=== PATIENT | female | born 1955 | race Caucasian/White ===

== ENCOUNTER 2019-01-11 00:29 | Outpatient (CLI) | payer BC, SELFPAY ==
--- NOTE | 2019-01-11 08:00 | DI.MAMMO_ITS ---
SYMPTOMS/DIAGNOSIS: SCREENING, Z12.31 MAMMOGRAM: Mammograms were interpreted according to the usual protocol including computer analysis with CAD system, tomosynthesis and C view imaging. The breast tissue is composed of scattered fibroglandular densities. There is no evidence of a dominant mass. There are no suspicious calcifications, and there has been no significant interval change when compared with prior images. SUMMARY: No evidence of malignancy, Category I, annual screening mammography is recommended. Breast density Category B. SA ASSESSMENT OF FINDINGS: Negative. Category 1. Patient will receive a letter notifying them of these results. BI-RADS category B. There are scattered areas of fibroglandular density.
== END 2019-01-11 00:49 ==
PROVIDERS: PCP Family Medicine; Visit Provider Family Medicine
DX: Z12.31 Encounter for screening mammogram for malignant neoplasm of breast (principal)
CPT/HCPCS: 77063; 77067

== ENCOUNTER 2020-12-24 09:27 | Outpatient (REF) | payer MEDICAID, SELFPAY ==
--- NOTE | 2020-12-24 08:30 | PAPFT_PTH ---
PATIENT: Vidhi Joya LOC: [facility] U#:[id number] AGE/SX: 65/F ROOM: RE12/24/[address]: Tia Carolina MD, DC : 1955 BED: DIS: 12/24/2020 SPEC #: [id number] RECD: 12/24/20 12:47 STATUS: SIMRAN RELuis Felipe #: [id number] CORINNE: 12/24/20 08:[address]: Tia Carolina DEPT: [facility] Cytology RECD BY: Kori Lopez Tissues: 1 - CX/ENDOCX FOR PAP SMEARS Procedures: PAP THIN PREP/UVM Screening HPV DNA PROBE Comments: [id number]
== END 2020-12-24 09:28 | disposition home or self-care (01) ==
LOC: LBN 09:27
PROVIDERS: PCP Family Medicine; Visit Provider Family Medicine
DX: Z12.4 Encounter for screening for malignant neoplasm of cervix (principal); Z87.42 Personal history of other diseases of the female genital tract; Z11.51 Encounter for screening for human papillomavirus (HPV)
CPT/HCPCS: 88142; 87624

== ENCOUNTER → 2021-11-17 02:01 | Outpatient (CLI) | payer OTHER, MEDICAID, SELFPAY ==
--- NOTE | 2021-11-17 11:04 | DI.MAMMO_ITS ---
Exam(s) MAMMO SCREENING EXAM: MAMMO SCREENING CLINICAL HISTORY: screening, Z12.39 TECHNIQUE: Mammograms were interpreted according to the usual protocol including computer analysis w [employer] CAD system, tomosynthesis and C-view imaging. COMPARISON: 2012 through 2018 FINDINGS: The breasts are composed of scattered fibroglandular densities, Breast Density category B. No suspicious masses or suspicious microcalcifications are seen. No skin thickening or abnormal axillary lymph nodes are seen. There has been no significant change from prior exams. IMPRESSION: BI-RADS Category 1, Negative mammogram Yearly screening mammography is recommended. Breast Density - Category B, scattered fibroglandular densities. A negative radiographic report should not delay biopsy if a dominant or clinically suspicious mass is present. Up to ten percent of cancers are not identified on mammography. A negative report may reinforce clinical impression. Adenosis and dense breasts may obscure an underlying neoplasm. False positive reports average 6 to 10%. Patient will receive a letter notifying them of these results.
== END ==
PROVIDERS: PCP Family Medicine; Visit Provider Family Medicine
DX: Z12.31 Encounter for screening mammogram for malignant neoplasm of breast (principal)
CPT/HCPCS: 77063; 77067

== ENCOUNTER 2022-03-18 18:07 | Outpatient (CLI) | payer OTHER, MEDICAID, SELFPAY ==
--- NOTE | 2022-03-18 18:00 | RT.EKG_ITS ---
APPROVED REPORT Exam: Resting ECG Reason for Exam: chest discomfort Patient Location: O HR:67 bpm ECG Measurements Heart Rate 67 AXIS WY 170 P 57 QRSd 89 QRS 68 QT 419 T 51 QTc 443 Conclusion Sinus rhythm...normal P axis, V-rate 50- 99 Normal Electrocardiogram
--- NOTE | 2022-03-18 19:18 | DI.VRAD_ITS ---
PROCEDURE INFORMATION: Exam: XR Chest Exam date and time: 03/18/2022 6:58 PM Age: 66 years old Clinical indication: R/O pneumo TECHNIQUE: Imaging protocol: Radiologic exam of the chest. Views: 2 views. COMPARISON: No relevant prior studies available. FINDINGS: Lungs: Unremarkable. No consolidation. Pleural spaces: Unremarkable. No pleural effusion. No pneumothorax. Heart/Mediastinum: Unremarkable. No cardiomegaly. Bones/joints: Unremarkable. IMPRESSION: No acute findings. Dictated and Authenticated by: Emilia Canela MD. Ordering:NATALEE Still MD
== END 2022-03-18 18:08 | disposition home or self-care (01) ==
LOC: DI.CM 18:08
PROVIDERS: PCP Family Medicine; Visit Provider Nurse Practitioner Family
DX: R07.89 Other chest pain (principal)
CPT/HCPCS: 93010; 71046

== ENCOUNTER → 2022-03-18 18:43 | Outpatient (CLI) | payer OTHER, MEDICAID, SELFPAY ==
--- NOTE | 2022-03-18 18:45 | DI.RAD_ITS ---
Exam(s) XR CHEST 2V PA LATERAL EXAM: XR CHEST 2V PA LATERAL CLINICAL HISTORY: r/o pnuemonia. TECHNIQUE: 2D digital imaging was performed. COMPARISON: CR CHEST 2 VIEWS PA,LAT from 01/27/2010 FINDINGS: 2 views: Heart size is normal. The mediastinum is not widened. Lungs are clear. No infiltrates nor pleural effusions. IMPRESSION: No acute pulmonary findings. DATA REPOSITORY: RADIATION DOSE DELIVERED:
== END ==
PROVIDERS: PCP Family Medicine; Visit Provider Nurse Practitioner Family
DX: R06.02 Shortness of breath (principal)
CPT/HCPCS: 71046

== ENCOUNTER → 2023-07-06 01:06 | Outpatient (CLI) | payer OTHER, SELFPAY ==
--- NOTE | 2023-07-06 07:30 | DI.RAD_ITS ---
Exam(s) XR KNEE RT 3V AP,LAT,MARQUITA EXAM: XR KNEE RT 3V AP,LAT,MARQUITA CLINICAL HISTORY: r knee pain,m25.561. TECHNIQUE: 2D digital imaging was performed. COMPARISON: No exams were available for comparison FINDINGS: 3 views No evidence of fracture or joint effusion. Bone density normal. No osseous lesions. No osteochondr al defects. No degenerative narrowing. No osteophytes. IMPRESSION: No significant radiographic findings on these three views of the right knee. DATA REPOSITORY: RADIATION DOSE DELIVERED:
== END ==
PROVIDERS: PCP Family Medicine; Visit Provider Family Medicine
DX: M25.561 Pain in right knee (principal)
CPT/HCPCS: 73562

== ENCOUNTER → 2024-02-29 13:41 | Outpatient (BNVA) | payer OTHER, SELFPAY | PROVIDERS: PCP Family Medicine; Referring Provider Family Medicine; Visit Provider Surgery | DX: Z12.11 Encounter for screening for malignant neoplasm of colon (principal); R19.5 Other fecal abnormalities ==

== ENCOUNTER 2024-03-17 07:43 | Day surgery (SDC) | payer OTHER, SELFPAY ==
--- NOTE | 2024-03-16 13:39 | W.PM.DSUDISC ---
Date of service: 03/17/24 Time of Service: 10:00 Discharge Plan Disposition Patient Disposition: Home Condition: Good Discharge Details Reason For Visit: screening colonoscopy Attending Provider: Willis Wong Primary Care Provider: Tia Carolina Home Meds and New Rx's Prescriptions: Continued estradiol [Estrace] 0.01 % (0.1 mg/gram) cream 1.5 g VG 2/wkly Qty: 42.5 11RF multivitamin 1 EACH capsule 1 ea PO DAILY Discontinued polyethylene glycol 3350 17 gram/dose powder 238 g PO ONCE Qty: 238 0RF Rx Instructions: take per colonoscopy instructions bisacodyl [Dulcolax (bisacodyl)] 5 mg tablet,delayed release (DR/EC) 5 mg PO ONCE Qty: 4 0RF Rx Instructions: take per colonoscopy instructions Discharge Instructions Additional Instructions: Vidhi, we were able to complete your colonoscopy today without any difficulty. Your prep was excellent negative everything fine. You have a little bit of diverticulosis. It scattered along the length of your colon, with no particular worrisome spots. Most noticeably, there is some inflammation in your rectum. From reading Dr. Dunbar's colonoscopy report in the past, it sounds like what I see today coincides with what was observed back then. I did some biopsies today similar to your previous experience. My guess is that this might represent some type of subclinical ulcerative colitis, although there are some other types of proctitis that are pretty poorly defined. In the big picture of things, I do not think it has anything to worry about. Once I have the results of the biopsy, the office will be in touch with any other recommendations. Please do not hesitate to call if you have any questions in the meantime. 1. If tolerated, consume a soft, low fiber diet for 1-2 days. 2[address] Do not drive, drink alcohol, operate machinery, make critical decisions, or do activities that require coordination or balance for 24 hours. 3. Because air was put into your colon during the procedure, expelling air from your rectum (passing gas or farting) is normal. 4. You may not have a bowel movement for 1-3 days because of the colonoscopy prep. This is normal. 5. Go directly to the emergency room if you notice any of the following: Develop chills (warm to touch), or if you have a thermometer and your temperature is above 101 Difficulty breathing or difficultly swallowing Persistent vomiting Severe abdominal pain, other than gas cramps Severe chest pain Black, tarry stools Any bleeding ? exceeding one tablespoon 6. Call your physician if the site where your intravenous was started becomes red, swollen, painful, and warm to touch. 7. Your physician has reviewed your pre-procedure medications. Please continue to take those medications as previously ordered. You will be given specific information/education regarding any changes to your medications before leaving. Stand Alone Forms: Anesthesia Discharge InstFernandez Bynum (DSU) Activity:: Activity as Tolerated Diet:: As Tolerated Discharge Orders Discharge Orders: Discharge Order (Routine); Ordered 03/16/24 Ordered By: Willis Wong DS: Diagnosis Discharge Diagnosis (1) Encounter for screening colonoscopy: Asessment and Plan: Follow-up on biopsy results
--- NOTE | 2024-03-16 13:41 | W.COLOREPORT ---
Date of service: 03/17/24 Time of Service: 10:02 Colonoscopy Report Date of procedure: 03/17/24 Pre-op diagnosis general: screening colonoscopy Post-op diagnosis procedure note: other (Diverticulosis, proctitis) Procedure: colonoscopy with rectal biopsies Surgeon: Willis Wong Anesthesia Type: General:No Airway Estimated blood loss (mL): 5 Pathology: other (Rectal biopsies at 20 cm and 15 cm) Complications: None Disposition: same day Indications: Vidhi is a 68 year old woman who had a positive cologuard test. She needs a follow up screening colonoscopy Prep: Miralax/Dulcolax Procedure Start Time: :32 Procedure End Time: 09:56 Retraction Time: 14 Findings: Proctitis extending from about 5 cm beyond the anal verge to about 20 cm beyond the anal verge, small area of ulceration around 15 cm in. Occasional scattered diverticulosis Procedure Description: After the induction of anesthesia, and with the patient in left lateral decubitus position, I began by performing an external anorectal exam.? Perineum and skin were normal, as was the anal verge.? There was no evidence of external hemorrhoids.? Next, I performed a digital rectal exam.? I did not appreciate any abnormal findings.? Next, I advanced a colonoscope into the rectal vault.? I performed retroflexion.? Top portion of the anal canal appeared normal.? Using insufflation, I then advanced the colonoscope beyond the rectal folds and into the sigmoid colon before advancing towards the cecum.? The quality of the prep was excellent.? The scope was noted to be in the cecum by identification of the ileocecal valve and appendiceal orifice.? I then began withdrawing the colonoscope using repeated irrigation as necessary for full evaluation of the colonic mucosa. ?Once the scope was withdrawn to the level of the rectum, great care was taken to examine portions of the rectal folds. Beginning around 20 cm from the anal verge with some prominence of lymphoid tissue. Narrowband imaging was used to help with analysis. Grossly, it appears consistent with benign lymphoid aggregate. I did perform some random biopsies around 20 cm. At 15 cm, there is a small area of shallow-based ulceration. There is no stigmata of recent bleeding. Cold biopsies were performed of this as well. Finally, the scope was withdrawn and the patient was brought to the same-day surgery recovery unit as the anesthetic wore off. ?The findings and instructions were shared with the patient prior to discharge. [place] Bowel Prep [place] Bowel Prep Right Colon: 3 Left Colon: 3 Transverse Colon: 3 Total Score: 9
[2024-03-17 08:25] VITALS: BP 147/70; PULSE 57; RESP 18; TEMP 36.2; O2SAT 100
[2024-03-17] MEDS: Lactated Ringers 1,000 ML 80 ML IV (08:32)
--- NOTE | 2024-03-17 09:05 | W.ANESPRE ---
General Info Date of Service Date Performed: 03/17/24 Height: 5 ft 4.75 in Weight: 68.4 kg Body Mass Index (BMI): 25.2 Surgical Procedure: Operation Date: 03/17/24 09:20 Proposed Procedure Side Surgeon kelechi Wong MD Meds Allergies and Home Medications Allergies Allergy/AdvReac Type Severity Reaction Status Date / Time Sulfa (Sulfonamide Allergy Severe Anaphylaxsi Verified 03/17/24 08:35 Antibiotics) s tetanus and diphtheria Allergy Severe SWELLING,FE Verified 03/17/24 08:35 toxoids MANDY procaine HCl (From Novocain) Allergy Intermediate blisters, Verified 03/17/24 08:35 rash nitrous oxide AdvReac Intermediate HAS Verified 03/17/24 08:35 OPPOSITE EFFECT TO MEDICINE ibuprofen lysine (From AdvReac Mild baez Verified 03/17/24 08:35 NeoProfen (ibuprofen stomach lysn)(PF)) lining lobster Allergy Severe HIVES Uncoded 03/17/24 08:35 Home Medication ?Medication ?Instructions ?Recorded multivitamin 1 ea PO DAILY 09/16/12 estradiol 0.01% (0.1 mg/gram) 1.5 g vaginal 2/wkly #42.5 grams 02/25/24 vaginal cream (Estrace) Current Visit Medications: Current Medications Generic Name Dose Route Start Last Admin Trade Name Freq PRN Reason Stop Dose Admin Ringer's Solution 1,000 mls @ 80 mls/hr 03/17/24 06:00 03/17/24 08:32 IV 03/17/24 23:59 80 mls/hr INFUSION SAMUEL Administration IV Miscellaneous Supplies 1 each 03/17/24 06:00 Iv Access IV 03/17/24 23:59 DIRECTED SAMUEL Ondansetron HCl 4 mg 03/16/24 13:42 Ondansetron 4 Mg/2 Ml Vial IVP 04/15/24 13:41 Q4H PRN PRN Nausea / Vomiting Sodium Chloride 0 ml 03/17/24 06:00 Normal Saline Flush 10 Ml Syr IV 03/17/24 23:59 PRN PRN Sodium Chloride 0 ml 03/17/24 06:00 Normal Saline 10 Ml Vial IJ 03/17/24 23:59 DIRECTED PRN Sterile Water 0 ml 03/17/24 06:00 Water,Injection,Sterile 10 Ml Vial IJ 03/17/24 23:59 DIRECTED PRN PFS Active Problems Active Problems: Problem Status Onset Code Positive colorectal cancer screening using Cologuard test Acute R19.5 Tick bite Acute W57.XXXA Right knee pain Acute M25.561 Poison oak Acute L23.7 COVID-19 Acute U07.1 Grief Acute F43.21 Actinic keratoses Chronic 01/19/14 L57.0 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 Annual physical exam Acute 10/05/16 Z00.00 Atrophic vaginitis Chronic 09/26/13 N95.2 Borderline systolic hypertension Chronic 09/10/15 R03.0 Other idiopathic scoliosis, 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/10/15 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 lattice degeneration Chronic 09/26/13 H35.419 Status post tonsillectomy Resolved Z90.89 Urethral caruncle Resolved N36.2 Medical History Medical History Encounter for screening colonoscopy Family history of malignant neoplasm of breast (08/24/14) Medical History Comments:: 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 Surgical History Surgical History (Updated 03/17/24 @ 09:04 by Maura Hughes) History of colonoscopy (~02/2024) History of appendectomy History of bladder surgery polyps due to methylene chlorine urethral caruncle removed (11/28/09) Tonsillectomy (~1963) Bladder Surgery (~1986) polyps removed Appendectomy (~1974) Tobacco Smoking/Tobacco Use Status: Never Passive smoking exposure: Yes (childhood) Second hand exposure: Yes Alcohol Alcohol Intake: current Alcohol intake frequency: a few times a week Alcohol type: wine Substance Use Substance use: Never Substance use type: does not use Vital Signs and Lab Results Vital Signs Most Recent Vital Signs in EMR: Most Recent Vital Signs Temp Pulse Resp BP Pulse Ox 36.2 C L 57 L 18 147/70 H 100 03/17/24 08:25 03/17/24 08:25 03/17/24 08:25 03/17/24 08:25 03/17/24 08:25 Lab Results Blood Type / Crossmatch: No Data to Display Complete Blood Count: No Data to Display Complete Metabolic Panel: No Data to Display Liver Function Panel: No Data to Display Coagulation Panel: No Data to Display Cardiac Panel: No Data to Display Arterial Blood Gas: No Data to Display Venous Blood Gas: No Data to Display Pancreas Panel: No Data to Display Thyroid Panel: No Data to Display Infectious Disease: No Data to Display Blood Cultures: No Data to Display Toxicology Panel: No Data to Display Anesthesia Assessment and Plan Anesthesia History Personal History: Other Family History: No Family History of Anesthesia Complications Exercise Tolerance Exercise Tolerance: Metabolic Equivalents>4 Pertinent Negatives Pertinent Negatives: No Symptoms of GERD Cardiac & Pulmonary Exam Cardiac Exam: Normal S1/S2 Heart Sounds Pulmonary Exam: Clear Bilateral Breath Sounds Implantable Cardiac Device Does patient have a Pacemaker or an ICD?: No Airway Exam Known Difficult Airway: No Mallampati Class: 2 Mouth Opening: Normal (> 3cm) Thyromental Distance: Greater than 3 cm Neck Range of Motion: Full ROM Neck Circumference: Normal Teeth Condition: Normal Dentition ASA Classification ASA Score: ASA 2 Emergency Case?: No NPO Status NPO Status: NPO Clears >2 hours, Solids >8 hours Anesthesia Plan Resuscitation Status: Full Code Anesthesia Technique: General Anesthesia Airway Planned: Natural Airway Monitors Used: Standard Monitors
[2024-03-17 09:09] VITALS: BMI 25.2
--- NOTE | 2024-03-17 09:55 | BOWEL_PTH ---
PATIENT: Vidhi Joya LOC: [facility] U#:[id number] AGE/SX: 68/F ROOM: RE03/17/[address]: Willis Wong MD : 1955 BED: DIS: 03/17/2024 SPEC #: [id number] RECD: 03/17/24 12:31 STATUS: SIMRAN RE #: [id number] CORINNE: 03/17/24 09:[address]: Willis Wong DEPT: Surgical Specimen RECD BY: Kori Lopez ENTERED: 03/17/24 12:32 SP TYPE: Bowel OTHR DR: Tia Carolina MD, DC Tissues: 1 - BIOPSY BOWEL 2 - BIOPSY BOWEL Procedures: GROSS AND MICRO LEVEL 4 Comments: [id number]
[2024-03-17 10:00] VITALS: BP 105/58; PULSE 61; RESP 16; TEMP 36.2; O2SAT 100
[2024-03-17 10:24] VITALS: BP 116/62; PULSE 54; RESP 16; TEMP 36; O2SAT 100
--- NOTE | 2024-03-17 10:50 | W.ANESPOSTOP ---
Postoperative Evaluation Date, Time and Location Date Performed: 03/17/24 Time Performed: 10:50 Patient Location: Day Surgery Unit Vital Signs Most Recent Imported Vital Signs: Most Recent Vital Signs Temp Pulse Resp BP Pulse Ox 36 C L 54 L 16 116/62 100 03/17/24 10:24 03/17/24 10:24 03/17/24 10:24 03/17/24 10:24 03/17/24 10:24 Pain Score Most Recent Pain Score: Most Recent Pain Score Pain Level 0 03/17/24 10:24 Assessment Mental Status: Awake (Alert & Oriented to Patient Baseline) Airway and Respiratory Function: Patent airway with normal (patient baseline) respiratory exam Cardiovascular Function: Hemodynamically Stable Hydration Status: Adequately Hydrated Nausea & Vomiting: No Nausea or Vomiting Pain: Pt. Denies Any Pain Peripheral Nerve Block: Patient did not receive a nerve block
== END 2024-03-17 10:48 | disposition home or self-care (01) ==
LOC: SUR 07:44
PROVIDERS: PCP Family Medicine; Visit Provider Surgery
PROC: 0DJD8ZZ Inspection of Lower Intestinal Tract, Via Natural or Artificial Opening Endoscopic (ICD-10-PCS; CPT 45378; principal; 2024-03-17 09:15)
DX: Z12.11 Encounter for screening for malignant neoplasm of colon (principal); K63.89 Other specified diseases of intestine; K63.5 Polyp of colon
CPT/HCPCS: 45380; 88305; J2704

== ENCOUNTER 2024-08-11 00:28 | Outpatient (CLI) | payer MEDICARE, SELFPAY ==
--- NOTE | 2024-08-11 16:29 | DI.MAMMO_ITS ---
Exam(s) MAMMO SCREENING EXAM: MAMMO SCREENING CLINICAL HISTORY: Z12.39 Screening. TECHNIQUE: Bilateral full field digital CC and MLO mammographic images were obtained with 3D tomosyn thesis and utilizing computer aided detection (CAD). COMPARISON: Prior mammograms dating back to 2016 were reviewed. FINDINGS: There has been no significant change in the appearance and distribution of the fibroglandular tissue. There are no CAD designations. There are no new spiculated masses nor malignant appearing microcalcification groups. Asymmetric densities in left breast are unchanged 2016. There is no significant architectural distortion nor skin thickening-retraction. IMPRESSION: Stable benign findings. No radiographic evidence of malignancy. BI-RADS Category 2 - Benign Findings Breast Density - Category C - Heterogeneously dense Breast density Category C or D implies that the patient has dense breast tissue. Dense breast tissue can make it harder to find cancer on a mammogram. Dense breast tissue is also associated with an incr eased risk of breast cancer. This information about the result of the mammogram report was provided to the patient to raise their awareness. Use this report when you speak with the patient about their risks for breast cancer, which includes their family history. At that time, you may recommend additional screening tests (Ultrasoun d or MRI) as these tests may add significant information. A negative radiographic report should not delay biopsy if a dominant or clinically suspicious mass is present. Up to ten percent of cancers are not identified on mammography. A negative report may reinforce clinical impression. Adenosis and dense breasts may obscure an underlying neoplasm. False positive reports average 6 to 10%. Patient will receive a letter notifying them of these results.
== END 2024-08-11 00:48 ==
LOC: DI 00:28
PROVIDERS: PCP Family Medicine; Visit Provider Family Medicine
DX: Z12.31 Encounter for screening mammogram for malignant neoplasm of breast (principal); R92.333 Mammographic heterogeneous density, bilateral breasts; D24.2 Benign neoplasm of left breast
CPT/HCPCS: 77063; 77067